=== PATIENT | female | born 1985 | race Caucasian/White ===

== ENCOUNTER 2018-02-06 21:19 | Emergency (ER) | payer OTHER ==
[~2018-02-06] VITALS: Ht 162.6 cm; Wt 140.6 kg
[~2018-02-06 21:19] MED LIST: BACTRIM DS TAB1 EACH PO; CEPHALEXIN 500500 M3 PO; FLONASE16 GM; FLOVENT DISKUS50 MCG; HYDROCHLOROTHIA25 M2; IBUPROFEN 800800 M1 PO; MOBIC15 MG; NORCO 5-325 TA1 EACH PO; SEASONALE1 EACH; VENTOLIN17 GM; ZANTAC 7575 MG; ZYRTEC10 M1; ZYRTEC10 MG
[2018-02-06] MEDS ORDERED: PROTONIX40 M1 PO (23:03)
[2018-02-06 23:27] VITALS: BP 173/107
== END 2018-02-06 23:28 | disposition home or self-care (01) ==
LOC: M.ERS 21:19
DX: J02.9 Acute pharyngitis, unspecified (principal); I10 Essential (primary) hypertension; M19.90 Unspecified osteoarthritis, unspecified site; E66.01 Morbid (severe) obesity due to excess calories

== ENCOUNTER 2021-06-11 20:06 | Emergency (ER) | payer OTHER ==
[~2021-06-11] VITALS: Ht 162.6 cm; Wt 125.2 kg
[~2021-06-11 20:06] MED LIST changes: +PROTONIX40 M1 PO
[2021-06-11] MEDS ORDERED: FAMOTIDINE 10 M10 MG PO (20:14)
[2021-06-11 21:44] VITALS: BP 146/97
== END 2021-06-11 21:45 | disposition home or self-care (01) ==
LOC: M.ERS 20:06
DX: S90.01XA Contusion of right ankle, initial encounter (principal); I10 Essential (primary) hypertension; M19.90 Unspecified osteoarthritis, unspecified site; E66.01 Morbid (severe) obesity due to excess calories; Z79.899 Other long term (current) drug therapy; Z87.442 Personal history of urinary calculi; W22.8XXA Striking against or struck by other objects, initial encounter; Y93.89 Activity, other specified; Y92.89 Other specified places as the place of occurrence of the external cause; Y99.9 Unspecified external cause status

== ENCOUNTER 2022-01-03 21:31 | Emergency (ER) | payer OTHER ==
[~2022-01-03] VITALS: Ht 162.6 cm; Wt 114.8 kg
[~2022-01-03 21:31] MED LIST changes: +FAMOTIDINE 10 M10 MG PO; -MOBIC15 MG; +MOBIC15 MG PO
[2022-01-03] MEDS ORDERED: OZEMPIC1 MG/0.71 SQ (21:51)
[2022-01-03 21:57] LABS: URINE BILIRUBIN NEGATIVE (Negative); URINE BLOOD NEGATIVE (Negative); URINE CLARITY CLEAR; URINE COLOR YELLOW; URINE GLUCOSE-RANDOM NEGATIVE (Negative); URINE KETONES NEGATIVE (Negative); URINE LEUKOCYTES-REFLEX NEGATIVE (Negative); URINE NITRITE-REFLEX NEGATIVE (Negative); URINE PROTEIN NEGATIVE (Negative); URINE UROBILINOGEN 0.2 E.U./dl (0.2-1.0)
[2022-01-03 22:36] LABS: ABSOLUTE EOSINOPHILS 0.1 thou/uL (0.0-0.7); ABSOLUTE LYMPHOCYTES 1.6 thou/uL (0.8-5.3); ABSOLUTE MONOCYTES 0.7 thou/uL (0.0-1.2); ABSOLUTE NEUTROPHILS 5.4 thou/uL (1.6-8.1); BASOPHILS 0.5 %; EOSINOPHILS 1.6 %; HEMATOCRIT 38.3 % (37.0-47.0); HEMOGLOBIN 12.9 gm/dL (12.0-15.0); LYMPHOCYTES 20.3 %; MCH 28.2 pg (26.0-34.0); MCHC 33.7 g/dL (28.0-37.0); MCV 83.7 fL (80.0-100.0); MONOCYTES 8.5 %; MPV 8.3 fl. (7.2-11.1); NUCLEATED RBCS 0 /100WBC; PLATELET COUNT* 264 thou/uL (150-400); POLYS 69.1 %; RBC 4.57 mil/uL (4.20-5.00); RDW-CV 14.1 % (10.5-14.5); WBC 7.9 thou/uL (4.0-11.0)
[2022-01-03 22:46] LABS: CALCIUM 8.4 mg/dL (8.5-10.1); CREATININE 0.8 mg/dL (0.6-1.3)
[2022-01-03 22:50] LABS: ALBUMIN 3.7 g/dL (3.4-5.0); TOTAL BILIRUBIN 0.5 mg/dL (<0.1-1.0); TOTAL PROTEIN 7.2 g/dL (6.4-8.2)
[2022-01-04] MEDS ORDERED: ZOFRAN ODT4 MG PO (02:08)
[2022-01-04] MEDS ORDERED: HYDROCODON-ACE1 EAC8 PO (02:08)
[2022-01-04 02:30] VITALS: BP 139/93
== END 2022-01-04 02:30 | disposition home or self-care (01) ==
LOC: M.ERS 21:31
PROVIDERS: Emergency Medicine
DX: R10.31 Right lower quadrant pain (principal); I10 Essential (primary) hypertension; M19.90 Unspecified osteoarthritis, unspecified site; E66.01 Morbid (severe) obesity due to excess calories; Z87.442 Personal history of urinary calculi; Z79.899 Other long term (current) drug therapy